=== PATIENT | male | born 1980 | race Caucasian/White ===

== ENCOUNTER 2018-01-18 15:19 | Emergency (ER) | payer MEDICARE, MEDICAID ==
[~2018-01-18] VITALS: Ht 170.2 cm; Wt 90.3 kg
[~2018-01-18 15:19] MED LIST: BUTALB-APAP-CA1 EACH PO; NOHOMEMEDICATIONS
[2018-01-18 17:10] VITALS: BP 131/92
== END 2018-01-18 17:10 | disposition home or self-care (01) ==
LOC: M.ERS 15:19
DX: T17.228A Food in pharynx causing other injury, initial encounter (principal); X58.XXXA Exposure to other specified factors, initial encounter; Y93.89 Activity, other specified; Y92.89 Other specified places as the place of occurrence of the external cause; Y99.8 Other external cause status

== ENCOUNTER 2019-06-13 10:06 | Emergency (ER) | payer MEDICARE, MEDICAID ==
[~2019-06-13] VITALS: Ht 170.2 cm; Wt 81.7 kg
[2019-06-13 10:18] VITALS: BP 107/71
[2019-06-13] MEDS ORDERED: IBUPROFEN 600600 M1 PO (10:52)
== END 2019-06-13 11:23 | disposition home or self-care (01) ==
LOC: M.ERS 10:06
DX: S82.491A Other fracture of shaft of right fibula, initial encounter for closed fracture (principal); Z86.73 Personal history of transient ischemic attack (TIA), and cerebral infarction without residual deficits; Z91.030 Bee allergy status; W18.39XA Other fall on same level, initial encounter; Y93.51 Activity, roller skating (inline) and skateboarding; Y92.89 Other specified places as the place of occurrence of the external cause; Y99.8 Other external cause status

== ENCOUNTER → 2021-01-10 | Outpatient (CLI) | payer MEDICARE, MEDICAID ==
[~2021-01-10] MED LIST changes: +IBUPROFEN 600600 M1 PO
== END ==
LOC: M.CT 01-09 16:00
PROVIDERS: ATTEND Surgery
DX: K42.9 Umbilical hernia without obstruction or gangrene (principal); R19.5 Other fecal abnormalities; N42.89 Other specified disorders of prostate

== ENCOUNTER → 2021-02-03 | Day surgery (SDC) | payer MEDICARE, MEDICAID ==
[~2021-02-03] MED LIST changes: +OXYCODONE HCL5 MG PO
--- NOTE | ~2021-02-03 | OP ---
[address] [address] OPERATIVE REPORT Name: RA REES Room: [facility]#: [id number] Admission: 02/03/21 Attend Phys: Carlos Nolan DO Discharge: Date of : 82 Report #: [id number] THIS REPORT FOR: cc: Minerva Linn. Minerva Hughes. Carlos Jalloh DO ~ DOC #: [id number] cc: BRENDA Sargent DO DATE OF SURGERY: 02/03/2021 PREOPERATIVE DIAGNOSES: Right inguinal hernia and umbilical hernia. POSTOPERATIVE DIAGNOSES: Right inguinal hernia and umbilical hernia plus intra-abdominal adhesions in the left lower quadrant. PROCEDURE: Da Tato robotic-assisted laparoscopic right inguinal hernia repair with mesh and lysis of adhesions and open umbilical hernia repair. SURGEON: Carlos Nolan DO. TOWER OPERATOR: Lul Lara DO. SECOND ASSEMBLER PING PONG TABLE: Student, Dr. Seema Adams. ANESTHESIA: General endotracheal and nerve blocks performed by Anesthesia. ESTIMATED BLOOD LOSS: 20 mL. COMPLICATIONS: None. SPECIMENS: No specimens were removed. IMPLANT: Bard 3D midway mesh large 10 x 16 cm. DESCRIPTION OF PROCEDURE: After obtaining proper consents and discussing risks and complications with the patient, he was taken to the operating room and laid in the supine position and administered general endotracheal anesthetic. The TAP blocks were then performed by Anesthesia. We then prepped and draped the patient in the usual sterile fashion. A timeout was performed. We confirmed the appropriate patient and procedure. Preoperative antibiotics had been given. SCDs were in place. We then made a small supraumbilical skin incision. This was carried down through the skin into the subcutaneous tissue using electrocautery for hemostasis. Once within the subcutaneous tissue, we dissected out a small umbilical hernia. [place] [address] OPERATIVE REPORT Name: RA REES Room: [facility]#: [id number] Admission: 02/03/21 Attend Phys: Carlos Nolan, DO Discharge: Date of : 82 Report #: [id number] umbilical stalk. We then opened the umbilical hernia sac, dissected out the fascia. We then grasped and elevated the fascia. This was a very tiny approximately 1 cm hernia defect, so we elected to just use this as our camera port. We placed 2-0 Vicryl sutures in a [id number]-[id number] fashion to secure the da Tato camera port, which was then inserted and insufflation was begun. Once insufflation was complete, full visual inspection of the anterior abdominal organs was performed. We confirmed that there was a right inguinal hernia. There appeared to be some adhesions in the left lower quadrant. I could not visualize the inguinal canal or the direct space at this point, so we elected to place 2 more da Tato ports, 1 in the right upper quadrant, 1 in the left upper quadrant. We then docked the da Tato robot. Once the robot was docked, we inserted a bipolar fenestrated grasper in the left upper quadrant and monopolar scissors in the right upper quadrant. I then went on console. Once I was on console, I was able to take down the adhesions along the left pelvis. These adhesions were mostly the epiploic appendages from the sigmoid colon. Once they were taken down, I was easily able to see the inguinal canal and the indirect and direct space and there was no evidence of any hernias on the left side. At this point, we elected to proceed with a right inguinal hernia repair as planned. In doing this, we opened the peritoneum from the median umbilical ligament laterally to the ASIS. I then bluntly opened the preperitoneal space all the way down to the pubic ramus and approximately 2 cm below the pubic ramus, I then continued the dissection of the peritoneum laterally. I did reduce the indirect inguinal hernia sac back into the peritoneal cavity. I then continued the dissection all the way out laterally to the ASIS making a pocket large enough to place the 3DMax large mesh. We then brought the mesh in. It was placed down into the pocket. It was sutured in place to Mitch's ligament medially and then also medial and lateral to the inferior epigastric vessels using a 2-0 Vicryl suture. I then closed the peritoneal flap using a running 2-0 V-Loc suture. We then removed all the needles from the peritoneal cavity. I then rescrubbed and went back to the patient's bedside. The da Tato robot was undocked. The instruments were all removed. We then closed the umbilical hernia defect using the 2 previously placed 0 Vicryl sutures plus 2 additional 0 Vicryl sutures. Skin incisions were all closed using 4-0 Monocryl subcuticular stitches and Dermabond. The patient was awakened in the operating room and transported to recovery room in stable condition. DO PAPITO Pina/REINA By: [id number] Nolan, DO /nt
== END | disposition home or self-care (01) ==
LOC: M.SUR 05:26
PROVIDERS: ATTEND Surgery
DX: K40.90 Unilateral inguinal hernia, without obstruction or gangrene, not specified as recurrent (principal); K42.9 Umbilical hernia without obstruction or gangrene; K66.0 Peritoneal adhesions (postprocedural) (postinfection); Z98.890 Other specified postprocedural states; Z79.899 Other long term (current) drug therapy